=== PATIENT | male | born 1960 | race Two or more races ===

== ENCOUNTER → 2016-06-09 | Outpatient (CLI) | payer OTHER ==
--- NOTE | 2016-06-09 14:55 | RADRPT ---
PROCEDURE: RIGHT knee x-ray CLINICAL INDICATION: Pain. TECHNIQUE: AP, lateral, sunrise and oblique views of the knee were obtained. COMPARISON: None FINDINGS: There are tiny spurs off the articular surface of the patella and sharpening of the intercondylar em inences. There is slight narrowing of the patellofemoral joint space but no effusion. IMPRESSION: Osteoarthritis of the right knee. RPTAT:AAJJ Physician Stefanie Date Time Electronically viewed and signed by Ghassan Aden Physician on 06/09/2016 14:55 /
== END | disposition home or self-care (01) ==
LOC: HKI 14:26
PROVIDERS: ATTEND Orthopaedic Surgery
DX: M25.561 Pain in right knee (principal)
CPT/HCPCS: 73564; Z7500; G0463

== ENCOUNTER → 2017-09-29 | Outpatient (CLI) | END | disposition home or self-care (01) ==